=== PATIENT | female | born 1990 | race Caucasian/White ===

== ENCOUNTER 2019-04-30 03:06 | Inpatient (IN) | payer OTHER ==
[2019-04-30] MEDS ORDERED: TYLENOL EXTRA STRENGTH 500 MG PO PRN ×2 (03:26→08:15)
[2019-04-30] MEDS ORDERED: OMNIPEN 2 GM / NACL 100ML 100 ML IV ONE (03:26)
[2019-04-30] MEDS ORDERED: XYLOCAINE 1% HCL 20 ML MDV IJ PRN (03:26)
[2019-04-30] MEDS ORDERED: Zofran 4 MG/2 ML VIAL IV PRN (03:26)
[2019-04-30] MEDS ORDERED: PITOCIN 30 UNITS/ LR 500 ML 500 ML IV SCH ×2 (03:30→05:00)
[2019-04-30] MEDS: Lactated Ringers 1,000 ML IV SCH ×2 (03:36→04:13)
[2019-04-30] MEDS ORDERED: XYLOCAINE 2%/Epi 1:200000 20ML VIAL MPF IJ ONE ×2 (04:05→04:55)
[2019-04-30 04:11] LABS: Absolute Neutrophil Ct (ANC) 11.06 (1.4-6.9); BASOPHIL % 0.1 % (0.0-0.4); Basophil (Absolute #) 0.01 (0-0.4); Eosinophil % 0.2 % (0.00-5.0); Eosinophil (Absolute #) 0.03 (0-0.5); Lymphocyte (Absolute #) 1.34 (1.0-4.6); Lymphocytes % 9.9 % (24.0-44.0); Mean Cell Volume 93.2 fl (78-100); Mean Corpuscular Hgb Concent. 33.3 g/dl (32-36); Mean Platelet Volume 10.5 fl (6-9.5); Monocyte (Absolute #) 1.11 (0.0-1.3); Monocytes % 8.2 % (0.0-12.0); Neutrophil % 81.6 % (36.0-66.0); Platelet Count 329 K/mm3 (150-450); Red Blood Count 3.54 M/mm3 (4.1-5.4); Red Cell Distribution Width 14.7 % (11.5-14.0); White Blood Count 13.6 K/mm3 (4.0-10.5)
[2019-04-30] MEDS ORDERED: Ephedrine Sulfate 50 MG/ML IV PRN (04:25)
[2019-04-30] MEDS ORDERED: OB EPIDURAL NAROPIN/SUFENTANIL IN NACL EPIDURAL PRN (04:25)
[2019-04-30] MEDS ORDERED: Lactated Ringers 1,000 ML IV ONE (04:25)
[2019-04-30] MEDS ORDERED: OMNIPEN 1GM / NaCl 100ML 100 ML IV SCH (07:30)
[2019-04-30] MEDS ORDERED: LANSINOH 40 GM TOP PRN (08:15)
[2019-04-30] MEDS ORDERED: Mylicon 80MG PO PRN (08:15)
[2019-04-30] MEDS ORDERED: Dulcolax 10 MG SUPP PR PRN (08:15)
[2019-04-30] MEDS ORDERED: NORCO 5/325 MG PO PRN (08:15)
[2019-04-30] MEDS ORDERED: CORTISONE 1% CREAM TP PRN (08:15)
[2019-04-30] MEDS ORDERED: Dermoplast Spray TP PRN (08:15)
[2019-04-30] MEDS ORDERED: Anucort-HC SUPPOSITORY PR PRN (08:15)
[2019-04-30] MEDS ORDERED: TUCKS TP PRN (08:15)
[2019-04-30] MEDS ORDERED: Ambien 10 MG PO PRN (08:15)
[2019-04-30 09:41] LABS: Amphetamine,Urine NEGATIVE (NEGATIVE); Barbiturate,Urine NEGATIVE (NEGATIVE); Benzodiazepine,Urine NEGATIVE (NEGATIVE); Cocaine,Urine NEGATIVE (NEGATIVE); Methadone,Urine NEGATIVE (NEGATIVE); Opiate,Urine NEGATIVE (NEGATIVE); PCP,Urine NEGATIVE (NEGATIVE); THC,Urine NEGATIVE (NEGATIVE)
[2019-04-30] MEDS: FERREX 150 PO SCH (10:16)
[2019-04-30] MEDS: Colace 100 MG PO SCH ×2 (10:16→21:58)
[2019-04-30] MEDS ORDERED: M-M-R II Vaccine With Diluent SQ ONE (12:00)
[2019-04-30] MEDS: MOTRIN 400 MG PO PRN (18:11)
[2019-04-30 20:16] LABS: Absolute Neutrophil Ct (ANC) 15.79 (1.4-6.9); BASOPHIL % 0.1 % (0.0-0.4); Basophil (Absolute #) 0.02 (0-0.4); Eosinophil % 0.1 % (0.00-5.0); Eosinophil (Absolute #) 0.01 (0-0.5); Hematocrit 31.3 % (35-47); Hemoglobin 10.2 gm/dl (12.0-16.0); Lymphocyte (Absolute #) 1.04 (1.0-4.6); Lymphocytes % 5.8 % (24.0-44.0); Mean Cell Volume 93.2 fl (78-100); Mean Corpuscular Hgb Concent. 32.6 g/dl (32-36); Mean Platelet Volume 10.1 fl (6-9.5); Monocyte (Absolute #) 1.19 (0.0-1.3); Monocytes % 6.6 % (0.0-12.0); Neutrophil % 87.4 % (36.0-66.0); Platelet Count 268 K/mm3 (150-450); Red Blood Count 3.36 M/mm3 (4.1-5.4); Red Cell Distribution Width 14.8 % (11.5-14.0); White Blood Count 18.1 K/mm3 (4.0-10.5)
[2019-04-30 20:19] LABS: Mean Corpuscular Hemoglobin 30.3 pg (26-32)
[2019-04-30] MEDS: Adacel Vial IM ONE (21:59)
[2019-05-01] MEDS: MOTRIN 400 MG PO PRN ×2 (06:41→19:46)
[2019-05-01] MEDS: Colace 100 MG PO SCH ×2 (09:13→22:42)
[2019-05-01] MEDS: FERREX 150 PO SCH (09:13)
[2019-05-02] MEDS: MOTRIN 400 MG PO PRN (01:52)
[2019-05-02 02:10] VITALS: O2SAT 99
--- NOTE | 2019-05-02 08:11 | PCM.DS ---
Discharge Summary Date of Admission: 04/30/19 03:06 Admitting Physician: CINDY TURNER Consults: Consults on Case 04/30/19 04:26 Notify Anesthesia Provider PRN 04/30/19 08:15 Notify Physician ROUTINE Primary Care Provider: FINA MONTELONGO Allergies Allergies No Known Drug Allergies Allergy (Verified 04/30/19 04:52) Hospital Summary - Hospital Course Hospital Course: Pt came in as 29 yo at 38w 6d in spontaneous labor (SROM at home). She is a pt of Dr. Amin but lives in [place],so did not think she would make it to [place] to deliver. She was 3cm/100% at that time. She received her epidural. In the morning she was found to be 100% dilated and she delivered about 25min after I arrived. No complications. Very little bleeding. She was treated with a loading dose of ampicillin due to her (at that time) unknown Group B strep status. We got her prenatals later in the day. She was indeed GBS positive. 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 Otherwise no issues during this . She has recovered well, taking ibuprofen for pain. Her bleeding is slowing. - Vitals & Intake/Output Vital Signs: Vital Signs Temperature 98.1 F 05/02/19 02:00 Pulse Rate 68 05/02/19 02:00 Respiratory Rate 18 05/02/19 02:00 Blood Pressure 102/60 05/02/19 02:00 O2 Sat by Pulse Oximetry 99 05/02/19 02:00 Oxygen-Last Documented O2 Percentage 100% Intake & Output: Intake & Output 04/29/19 04/30/19 05/01/19 05/02/19 11:59 11:59 11:59 11:59 Intake Total 6885 294 3586 Balance 7718 087 5014 Weight 57.153 kg - Lab Result Diagrams: 04/30/19 20:14 - Procedures and Test Procedures and Tests throughout Hospitalization: Therapy Orders & Screens 04/30/19 09:09 Standby Routine Comment: Diagnosis: SROM, labor Discharge Exam General Appearance: no apparent distress, alert Neurologic Exam: oriented x 3, cooperative Eye Exam: eyes nml inspection Ears, Nose, Throat Exam: moist mucous membranes Neck Exam: normal inspection Respiratory Exam: normal breath sounds, lungs clear, No crackles/rales, No rhonchi, No wheezing Cardiovascular Exam: regular rate/rhythm, normal heart sounds, No murmur Gastrointestinal/Abdomen Exam: soft, normal bowel sounds, other (fundus firm under umbilicus), No tenderness, No distention, No mass Extremity Exam: normal inspection Skin Exam: normal color, warm, dry, No rash Final Diagnosis/Problem List - Final Discharge Diagnosis/Problem (1) Spontaneous vaginal delivery Current Visit: Yes Status: Acute Assessment & Plan: PPD #2, doing great. Code(s): O80 - ENCOUNTER FOR FULL-TERM UNCOMPLICATED DELIVERY (2) Anemia Current Visit: Yes Status: Acute Assessment & Plan: Mild. Home on FeSO4 for 1 mo. Code(s): D64.9 - ANEMIA, UNSPECIFIED - Discharge Disposition: Home, Self-Care Condition: Good Prescriptions: New Docusate Sodium 100 mg [Colace 100 MG] 100 mg PO BID capsule Ferrous Sulfate 325 mg [Feosol 325 mg] 325 mg PO DAILY #30 tablet Ibuprofen 800 mg PO TID PRN #35 tablet PRN Reason: Pain Continue Pnv No.103/Folic/Om3s/Fish Oil [ Gummies] 1 each PO DAILY Follow up with: FINA MONTELONGO [Primary Care Provider] - 1 Week
[2019-05-02] MEDS: FERREX 150 PO SCH (10:22)
[2019-05-02] MEDS: Colace 100 MG PO SCH (10:22)
[2019-05-02 15:23] VITALS: BP 128/77; PULSE 92
== END 2019-05-02 16:50 | disposition home or self-care (01) | DRG 807 ==
LOC: OBSVTOIN 03:06 → EEVIPCON 03:06 → OB 03:06
PROVIDERS: ADMIT Family Medicine; ATTEND Family Medicine
PROC: 10E0XZZ Delivery of Products of Conception, External Approach (ICD-10-PCS; principal; 2019-04-30)
DX: O70.0 First degree perineal laceration during delivery (principal); Z37.0 Single live birth; O99.824 Streptococcus B carrier state complicating childbirth; D64.9 Anemia, unspecified; Z3A.38 38 weeks gestation of pregnancy; Z14.8 Genetic carrier of other disease
CPT/HCPCS: 36415; 80307; 85025; 87340; 90471; 90715; 94799; G0378; J0290; J2590; J2795; A9270-GY

== ENCOUNTER 2023-02-01 20:14 | Emergency (ER) | payer SELFPAY ==
[2023-02-01 21:43] VITALS: TEMP 97.8
[2023-02-01] MEDS ORDERED: BACTRIM DS TABLET PO STA (21:44)
[2023-02-01] MEDS ORDERED: BACTRIM DS TABLET PO ONE (21:49)
--- NOTE | 2023-02-01 21:50 | ERPHSYRPT ---
- History of Present Illness Time Seen by Provider: 02/01/23 21:29 Source: patient Exam Limitations: no limitations Patient Subjective Stated Complaint: pt states she has these pimples and they are so painful Triage Nursing Assessment: pt ambulated into er; pt is axo x4; c/o pustule to the face; pt has 3 pustules to face; pt states pain to pustule to rt cheek; pt states pain is radiating to ear; other pustules are on the rt side of face; skin PDW; no respiratory distress present; vitals wnl Physician History: is 32-year-old female presented in the ER with rash/swelling on the face. She has 2 on the left and 1 on the right side. It started 2 days ago and gradually worsening especially the one on the right side of the angle of jaw with pain radiating to right ear. No fever or chills reported. Timing/Duration: day(s) (2), gradual onset, worse Quality: painful Severity: moderate Location: face Possible Causes: no cause identified Associated Symptoms: rash Allergies/Adverse Reactions: No Known Drug Allergies Allergy (Verified 02/01/23 21:29) Hx Tetanus, Diphtheria Vaccination/Date Given: No Hx Influenza Vaccination/Date Given: No Hx Pneumococcal Vaccination/Date Given: No Travel Risk - International Travel Have you traveled outside of the country in past 3 weeks: No - Coronavirus Screening Are you exhibiting any of the following symptoms?: No Close contact with a COVID-19 positive Pt in past 14-21 Days: No - Vaccine Status Have you recieved a Covid-19 vaccination: No - Review of Systems Constitutional: No Symptoms Eyes: No Symptoms Ears, Nose, & Throat: No Symptoms Respiratory: No Symptoms Cardiac: No Symptoms Musculoskeletal: No Symptoms Skin: Rash, Skin Lesions Neurological: No Symptoms Endocrine: No Symptoms Hematologic/Lymphatic: No Symptoms (Chief) - Past Medical History Pertinent Past Medical History: Yes Neurological History: No Pertinent History ENT History: No Pertinent History Cardiac History: No Pertinent History Respiratory History: No Pertinent History Endocrine Medical History: No Pertinent History Musculoskeletal History: No Pertinent History GI Medical History: No Pertinent History History: Other Psycho-Social History: No Pertinent History Female Reproductive Disorders: No Pertinent History Other Medical History: polycystic kidney disease - Past Surgical History Past Surgical History: Yes Neuro Surgical History: No Pertinent History Cardiac: No Pertinent History Respiratory: No Pertinent History Gastrointestinal: No Pertinent History Genitourinary: No Pertinent History Musculoskeletal: No Pertinent History Female Surgical History: Tubal Ligation, Other Other Surgical History: cervix sugery- LEAP PROCEDURE - Social History Smoking Status: Never smoker How long have you smoked: 3 years Exposure to second hand smoke: Yes Drug Use: none Patient Lives Alone: No - Female History Hx Now: No - Nursing Vital Signs Nursing Vital Signs: Initial Vital Signs Temperature 97.8 F 02/01/23 21:30 Pulse Rate 79 02/01/23 21:30 Respiratory Rate 18 02/01/23 21:30 Blood Pressure 117/77 02/01/23 21:30 O2 Sat by Pulse Oximetry 100 02/01/23 21:30 Pain Scale Pain Intensity 7 - Physical Exam General Appearance: no apparent distress, alert Eye Exam: PERRL/EOMI Ears, Nose, Throat Exam: normal ENT inspection Neck Exam: normal inspection, supple, full range of motion Respiratory Exam: normal breath sounds, lungs clear Cardiovascular Exam: regular rate/rhythm, normal heart sounds Extremity Exam: normal inspection Neurologic Exam: alert, oriented x 3, cooperative, 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 Also has 1 x 1 cm area of induration with swelling at the angle of right jaw.) SpO2 Interpretation: normal SpO2: 100 O2 Delivery: Room Air Ordered Tests: Medication Summary Generic Name Dose Route Start Last Admin Trade Name Freq PRN Reason Stop Dose Admin Trimethoprim/Sulfamethoxazole 1 tab 02/01/23 21:44 Smz/Tmp Ds Tablet 1 Tablet PO 02/01/23 21:45 STAT STA - Progress Progress: unchanged Progress Note: 02/01/23 21:48 32-year-old is evaluated for rash on the both side of the face especially due to the right angle of jaw which is warm tender and a central head. Patient is started on Bactrim. Recommended Tylenol/ibuprofen and outpatient follow-up. Discussed signs symptoms of worsening needing return to ER which she seems understanding. Counseled pt/family regarding: diagnosis, need for follow-up Medical Desision Making - Risk of complications The pt has a mod risk of morbidity or mortality based on: Need for prescription drug management - Departure Departure Disposition: Home Clinical Impression: Cutaneous abscess of face Condition: Stable Critical Care Time: No Referrals: CINDY BRITTON [Primary Care Provider] - Follow up with PCP 1 day Instructions: Skin Abscess Additional Instructions: Take Tylenol/ibuprofen as needed for pain. Follow-up with primary care for reevaluation. Return to ER for increasing pain swelling redness/fever chills etc. Prescriptions: Smz/Tmp Ds Tablet [Bactrim Ds Tablet] 1 tab PO BID 7 Days #14 tablet
[2023-02-01 22:02] VITALS: BP 122/91; PULSE 71; RESP 15; O2SAT 98
== END 2023-02-01 22:04 | disposition home or self-care (01) ==
LOC: ED 20:14
DX: L02.01 Cutaneous abscess of face (principal); Z28.310 Unvaccinated for COVID-19
CPT/HCPCS: 99282; A9270-GY

== ENCOUNTER 2023-07-06 17:50 | Emergency (ER) | payer OTHER ==
[2023-07-06 18:08] VITALS: TEMP 97.9
[2023-07-06] MEDS ORDERED: Zofran 4 MG/2 ML VIAL IV ONE (18:14)
[2023-07-06] MEDS ORDERED: Hydromorphone 1 mg/ml Injection IV ONE (18:14)
[2023-07-06] MEDS ORDERED: PROTONIX 40 MG IV IV ONE ×2 (18:14→18:28)
[2023-07-06] MEDS ORDERED: Sodium Chloride 0.9% 1000 ML 1,000 ML IV STA (18:14)
[2023-07-06] MEDS ORDERED: Zofran 4 MG/2 ML VIAL ONE (18:28)
[2023-07-06] MEDS ORDERED: Sodium Chloride 0.9% 1000 ML 1,000 ML ONE (18:28)
[2023-07-06] MEDS ORDERED: Hydromorphone 1 mg/ml Injection ONE (18:28)
[2023-07-06 18:49] LABS: Absolute Neutrophil Ct (ANC) 12.51 x10^3/uL (1.4-6.9); BASOPHIL % 0.3 % (0.0-0.4); Basophil (Absolute #) 0.04 x10^3/uL (0-0.4); Eosinophil % 0.1 % (0.00-5.0); Eosinophil (Absolute #) 0.01 x10^3/uL (0-0.5); Hematocrit 35.8 % (35-47); Hemoglobin 11.6 g/dL (12.0-16.0); IMMATURE GRAN # 0.06 x10^3u/L (0.00-0.03); IMMATURE GRAN % 0.4 % (0.00-0.4); Lymphocyte (Absolute #) 0.85 x10^3/uL (1.0-4.6); Lymphocytes % 5.8 % (24.0-44.0); Mean Cell Volume 95.5 fL (78-100); Mean Corpuscular Hemoglobin 30.9 pg (26-32); Mean Corpuscular Hgb Concent. 32.4 g/dL (32-36); Mean Platelet Volume 9.6 fL (7.5-11.0); Monocyte (Absolute #) 1.12 x10^3/uL (0.0-1.3); Monocytes % 7.7 % (0.0-12.0); Neutrophil % 85.7 % (36.0-66.0); Platelet Count 495 x10^3/uL (150-450); Red Blood Count 3.75 x10^6/uL (4.1-5.4); Red Cell Distribution Width 13.9 % (11.5-14.0); White Blood Count 14.6 x10^3/uL (4.0-10.5)
[2023-07-06 19:03] LABS: ALBUMIN 4.3 g/dL (3.5-5.0); BILIRUBIN,TOTAL 1.1 mg/dL (0.2-1.3); Creatinine 1 0.59 mg/dL (0.52-1.04); EST GLOMERULAR FILTRATION RATE 122.7 ML/MIN; Total Protein 8.5 g/dL (6.3-8.2)
[2023-07-06 19:15] LABS: ANION GAP 13.2 MEQ/L (5-15); Potassium 3.2 mmol/L (3.5-5.1)
[2023-07-06 19:24] LABS: INFLUENZA A NEGATIVE (NEGATIVE); INFLUENZA B NEGATIVE (NEGATIVE); RESPIRATORY SYNCTIAL VIRUS NEGATIVE (NEGATIVE); SARS-CoV-2 Xpert Express NEGATIVE (NEGATIVE)
--- NOTE | 2023-07-06 19:24 | ERPHSYRPT ---
- History of Present Illness Time Seen by Provider: 07/06/23 18:05 Historian: patient, family ( provided additional, independent history secondary to the patient feeling very ill), old records Exam Limitations: no limitations Patient Subjective Stated Complaint: Pt went to [facility] yesterday and they told her that she had a UTI only, pt has vomiting and diarrhea, body aches, headache, can't stand up straight, left sided flank pain and was not tested for anything else Triage Nursing Assessment: Pt was brought to the ER by her boyfriend, vitalbarry wnl, rates overall pain as 8/10, can't hold anything down, N&V, diarrhea, headache, left flank pain, hasn't felt well since 06/28 but just started vomiting yesterday, pulses normal, skin n/w/d, no difficulties breathing Physician History: This is a 33-year-old white female patient of Dr. Feliciano Zafar who presents to the emergency department with vomiting and diarrhea as well as pain in the left flank pain. Patient states that she started not feeling well on June 28, 2023. Because of her worsening symptoms she was seen at [facility] yesterday and was told she had a urinary tract infection. She was started on an antibiotic. She does not recall the name of the antibiotic. Her does not recall the name of the antibiotic. However, per patient report, the [facility] did not test for anything else. Patient has bodyaches, headache, abdominal pain and cannot stand up straight because of the pain in her abdomen and left flank area. Symptoms are even worse today. Patient denies chest pain. She does not have shortness of breath. Timing/Duration: day(s) (Several days), worse (Yesterday and even worsening today) Activities at Onset: none Quality: aching Abdominal Pain Onset Location: generalized abdomen Pain Radiation: flank (Left) Severity of Pain-Max: moderate Severity of Pain-Current: moderate Modifying Factors: Improves With: vomiting, other (Diarrhea) Associated Symptoms: diarrhea, loss of appetite, nausea, vomiting, weakness Previous symptoms: no prior history, recently seen, recently treated Allergies/Adverse Reactions: No Known Drug Allergies Allergy (Verified 07/06/23 18:10) Hx Tetanus, Diphtheria Vaccination/Date Given: No Hx Influenza Vaccination/Date Given: No Hx Pneumococcal Vaccination/Date Given: No Travel Risk - International Travel Have you traveled outside of the country in past 3 weeks: No - Coronavirus Screening Are you exhibiting any of the following symptoms?: Yes Symptoms: Vomiting/Diarrhea, Headaches/Body Aches/Fatigue Close contact with a COVID-19 positive Pt in past 14-21 Days: No - Vaccine Status Have you recieved a Covid-19 vaccination: No - Review of Systems Constitutional: Weakness Eyes: No Symptoms Ears, Nose, & Throat: No Symptoms Respiratory: No Symptoms Cardiac: No Symptoms, Other Abdominal/Gastrointestinal: Nausea, Vomiting, Diarrhea, Appetite Changes Genitourinary Symptoms: Flank Pain (Left side) Musculoskeletal: Arthralgias, Myalgias Skin: No Symptoms Neurological: No Symptoms Psychological: No Symptoms Endocrine: No Symptoms Hematologic/Lymphatic: No Symptoms Immunological/Allergic: No Symptoms All Other Systems: Reviewed and Negative - Past Medical History Pertinent Past Medical History: Yes Neurological History: No Pertinent History ENT History: No Pertinent History Cardiac History: No Pertinent History Respiratory History: No Pertinent History Endocrine Medical History: No Pertinent History Musculoskeletal History: No Pertinent History GI Medical History: No Pertinent History History: Other Psycho-Social History: No Pertinent History Female Reproductive Disorders: No Pertinent History Other Medical History: polycystic kidney disease - Past Surgical History Past Surgical History: Yes Neuro Surgical History: No Pertinent History Cardiac: No Pertinent History Respiratory: No Pertinent History Gastrointestinal: No Pertinent History Genitourinary: No Pertinent History Musculoskeletal: No Pertinent History Female Surgical History: Tubal Ligation, Other Other Surgical History: cervix sugery- LEAP PROCEDURE - Social History Smoking Status: Never smoker How long have you smoked: 3 years Exposure to second hand smoke: Yes Drug Use: none Patient Lives Alone: No - Female History Hx Now: No (tubal) - Nursing Vital Signs Nursing Vital Signs: Initial Vital Signs Temperature 97.9 F 07/06/23 17:55 Pulse Rate 98 H 07/06/23 17:55 Blood Pressure 117/70 07/06/23 17:55 O2 Sat by Pulse Oximetry 99 07/06/23 17:55 Pain Scale Pain Intensity 8 - Physical Exam General Appearance: no apparent distress, alert, anxiety Eye Exam: PERRL/EOMI, eyes nml inspection Ears, Nose, Throat Exam: normal ENT inspection, moist mucous membranes Neck Exam: normal inspection, non-tender, supple, full range of motion Respiratory Exam: normal breath sounds, lungs clear, airway intact, No chest tenderness, No respiratory distress Cardiovascular Exam: regular rate/rhythm, normal heart sounds, normal peripheral pulses Gastrointestinal/Abdomen Exam: soft, normal bowel sounds, No tenderness Pelvic Exam: not done Rectal Exam: not done Back Exam: normal inspection, normal range of motion, CVA tenderness (Left side), No vertebral tenderness Extremity Exam: normal inspection, normal range of motion, pelvis stable Neurologic Exam: alert, oriented x 3, cooperative, wildlife manager II-XII nml as tested, normal mood/affect, nml cerebellar function, nml station & gait, sensation nml Skin Exam: normal color, warm, dry Lymphatic Exam: No adenopathy SpO2 Interpretation: normal SpO2: 99 O2 Delivery: Room Air - Course Nursing assessment & vital signs reviewed: Yes Ordered Tests: Active Orders 24 hr Category Date Time Status IV Insertion STAT Care 07/06/23 18:14 Active ABDOMEN AND PELVIS W/0 CONTRAS [CT] Stat Exams 07/06/23 18:15 Completed AMYLASE Stat Lab 07/06/23 18:36 Completed BLOOD CULTURE Stat Lab 07/06/23 18:43 Received CBC W DIFF Stat Lab 07/06/23 18:36 Completed CMP Stat Lab 07/06/23 18:36 Completed CULTURE,URINE Stat Lab 07/06/23 20:19 Received LIPASE Stat Lab 07/06/23 18:36 Completed Lactic Acid Stat Lab 07/06/23 18:14 Completed MONO SCREEN Stat Lab 07/06/23 18:36 Completed UA W/RFX UR CULTURE Stat Lab 07/06/23 20:19 Completed Medication Summary Discontinued Medications Generic Name Dose Route Start Last Admin Trade Name Chaim PRN Reason Stop Dose Admin Hydromorphone HCl 1 mg 07/06/23 18:14 07/06/23 18:35 Hydromorphone 1 Mg/1ml Inj IV 07/06/23 18:15 1 mg STAT ONE Administration Hydromorphone HCl Confirm 07/06/23 18:28 Hydromorphone 1 Mg/1ml Inj Administered 07/06/23 18:29 Dose 1 mg .ROUTE .STK-MED ONE Sodium Chloride 1,000 mls @ 999 mls/hr 07/06/23 18:14 07/06/23 18:34 Sodium Chloride 0.9% 1000 Ml IV 07/06/23 19:14 999 mls/hr .Q1H1M STA Administration Sodium Chloride Confirm 07/06/23 18:28 Sodium Chloride 0.9% 1000 Ml Administered 07/06/23 18:29 Dose 1,000 mls @ ud .ROUTE .STK-MED ONE Lactated Ringer's 1,000 mls @ 999 mls/hr 07/06/23 20:08 07/06/23 20:18 Lactated Ringers IV 07/06/23 21:08 999 mls/hr .Q1H1M ONE Administration Lactated Ringer's Confirm 07/06/23 20:13 Lactated Ringers Administered 07/06/23 20:14 Dose 1,000 mls @ ud IV .STK-MED ONE Ondansetron HCl 4 mg 07/06/23 18:14 07/06/23 18:35 Ondansetron Hcl 4 Mg/2 Ml Vial IV 07/06/23 18:15 4 mg STAT ONE Administration Ondansetron HCl Confirm 07/06/23 18:28 Ondansetron Hcl 4 Mg/2 Ml Vial Administered 07/06/23 18:29 Dose 4 mg .ROUTE .STK-MED ONE Pantoprazole Sodium 40 mg 07/06/23 18:14 07/06/23 18:35 Pantoprazole 40 Mg Vial IV 07/06/23 18:15 40 mg STAT ONE Administration Pantoprazole Sodium Confirm 07/06/23 18:28 Pantoprazole 40 Mg Vial Administered 07/06/23 18:29 Dose 40 mg IV .STK-MED ONE Potassium Chloride 20 meq 07/06/23 20:09 07/06/23 21:06 Potassium Chloride Tab 10 Meq Tab PO 07/06/23 20:10 20 meq STAT ONE Administration Potassium Chloride Confirm 07/06/23 20:13 Potassium Chloride Tab 10 Meq Tab Administered 07/06/23 20:14 Dose 20 meq PO .STK-MED ONE Lab/Rad Data: Laboratory Result Diagrams 07/06/23 18:36 07/06/23 18:36 Laboratory Results 07/06/23 07/06/23 07/06/23 Range/Units 20:19 18:36 18:36 WBC (4.0-10.5) x10^3/uL RBC (4.1-5.4) x10^6/uL Hgb (12.0-16.0) g/dL Hct (35-47) % MCV (78-100) fL MCH (26-32) pg MCHC (32-36) g/dL RDW (11.5-14.0) % Plt Count (150-450) x10^3/uL MPV (7.5-11.0) fL Gran % (36.0-66.0) % Immature Gran % (Auto) (0.00-0.4) % Nucleat RBC Rel Count (0.00-0.1) % Eos # (Auto) (0-0.5) x10^3/uL Immature Gran # (Auto) (0.00-0.03) x10^3u/L Absolute Lymphs (auto) (1.0-4.6) x10^3/uL Absolute Monos (auto) (0.0-1.3) x10^3/uL Absolute Nucleated RBC (0.00-0.01) x10^3u/L Lymphocytes % (24.0-44.0) % Monocytes % (0.0-12.0) % Eosinophils % (0.00-5.0) % Basophils % (0.0-0.4) % Absolute Granulocytes (1.4-6.9) x10^3/uL Basophils # (0-0.4) x10^3/uL Sodium 137 (137-145) mmol/L Potassium 3.2 L (3.5-5.1) mmol/L Chloride 100 (98-107) mmol/L Carbon Dioxide 27 (22-30) mmol/L Anion Gap 13.2 (5-15) MEQ/L BUN 10 (7-17) mg/dL Creatinine 0.59 (0.52-1.04) mg/dL Estimated GFR 122.7 ML/MIN Glucose 104 (74-106) mg/dL Lactic Acid (0.4-2.0) Calcium 10.0 (8.4-10.2) mg/dL Total Bilirubin 1.10 (0.2-1.3) mg/dL AST 38 H (14-36) U/L ALT 50 H (0-35) U/L Alkaline Phosphatase 234 H (38-126) U/L Serum Total Protein 8.5 H (6.3-8.2) g/dL Albumin 4.3 (3.5-5.0) g/dL Amylase 46 (30-110) U/L Lipase 29 (23-300) U/L Urine Color Dark Yellow A (Yellow) Urine Appearance Cloudy A (Clear) Urine pH 7.5 (4.6-8.0) Ur Specific [place] 1.020 (1.005-1.030) Urine Protein 100 A (Negative) Urine Glucose (UA) Negative (Negative) mg/dL Urine Ketones 80 A (Negative) Urine Blood Moderate A (Negative) Urine Nitrite Negative (Negative) Urine Bilirubin Small A (Negative) Urine Urobilinogen 1.0 A (0.2) mg/dL Ur Leukocyte Esterase Small A (Negative) U Hyaline Cast (Auto) 3-5 A (0-2) /LPF Urine Microscopic RBC >100 A (0-5) /HPF Urine Microscopic WBC 21-50 A (0-5) /HPF Ur Epithelial Cells Few (None Seen) /HPF Urine Bacteria Few A (None Seen) /HPF Urine Culture Reflexed YES (NO) Monoscreen WEAKLY POSITIVE A (NEGATIVE) Influenza Type A Ag (NEGATIVE) Influenza Type B Ag (NEGATIVE) RSV (PCR) (NEGATIVE) SARS-CoV-2 (PCR) (NEGATIVE) 07/06/23 07/06/23 07/06/23 Range/Units 18:36 18:18 18:14 WBC 14.6 H (4.0-10.5) x10^3/uL RBC 3.75 L (4.1-5.4) x10^6/uL Hgb 11.6 L (12.0-16.0) g/dL Hct 35.8 (35-47) % MCV 95.5 (78-100) fL MCH 30.9 (26-32) pg MCHC 32.4 (32-36) g/dL RDW 13.9 (11.5-14.0) % Plt Count 495 H (150-450) x10^3/uL MPV 9.6 (7.5-11.0) fL Gran % 85.7 H (36.0-66.0) % Immature Gran % (Auto) 0.4 (0.00-0.4) % Nucleat RBC Rel Count 0.0 (0.00-0.1) % Eos # (Auto) 0.01 (0-0.5) x10^3/uL Immature Gran # (Auto) 0.06 H (0.00-0.03) x10^3u/L Absolute Lymphs (auto) 0.85 L (1.0-4.6) x10^3/uL Absolute Monos (auto) 1.12 (0.0-1.3) x10^3/uL Absolute Nucleated RBC 0.00 (0.00-0.01) x10^3u/L Lymphocytes % 5.8 L (24.0-44.0) % Monocytes % 7.7 (0.0-12.0) % Eosinophils % 0.1 (0.00-5.0) % Basophils % 0.3 (0.0-0.4) % Absolute Granulocytes 12.51 H (1.4-6.9) x10^3/uL Basophils # 0.04 (0-0.4) x10^3/uL Sodium (137-145) mmol/L Potassium (3.5-5.1) mmol/L Chloride (98-107) mmol/L Carbon Dioxide (22-30) mmol/L Anion Gap (5-15) MEQ/L BUN (7-17) mg/dL Creatinine (0.52-1.04) mg/dL Estimated GFR ML/MIN Glucose (74-106) mg/dL Lactic Acid 1.1 (0.4-2.0) Calcium (8.4-10.2) mg/dL Total Bilirubin (0.2-1.3) mg/dL AST (14-36) U/L ALT (0-35) U/L Alkaline Phosphatase (38-126) U/L Serum Total Protein (6.3-8.2) g/dL Albumin (3.5-5.0) g/dL Amylase (30-110) U/L Lipase (23-300) U/L Urine Color (Yellow) Urine Appearance (Clear) Urine pH (4.6-8.0) Ur Specific [place] (1.005-1.030) Urine Protein (Negative) Urine Glucose (UA) (Negative) mg/dL Urine Ketones (Negative) Urine Blood (Negative) Urine Nitrite (Negative) Urine Bilirubin (Negative) Urine Urobilinogen (0.2) mg/dL Ur Leukocyte Esterase (Negative) U Hyaline Cast (Auto) (0-2) /LPF Urine Microscopic RBC (0-5) /HPF Urine Microscopic WBC (0-5) /HPF Ur Epithelial Cells (None Seen) /HPF Urine Bacteria (None Seen) /HPF Urine Culture Reflexed (NO) Monoscreen (NEGATIVE) Influenza Type A Ag NEGATIVE (NEGATIVE) Influenza Type B Ag NEGATIVE (NEGATIVE) RSV (PCR) NEGATIVE (NEGATIVE) SARS-CoV-2 (PCR) NEGATIVE (NEGATIVE) - Progress Progress: improved, re-examined Progress Note: 07/06/23 19:23 This patient's medical issue is 1 of moderate complexity. Level of complexity in the workup performed is based on review of the patient's past medical history, review of patient's medication list, review of patient drug allergy list, history of present illness and physical findings on examination. The workup includes placement of intravenous line, infusion of normal saline s olution, infusion of Protonix intravenously, infusion of Dilaudid intravenously, infusion of Zofran intravenously, CBC, CMP, lactic acid level, urinalysis, amylase and lipase levels, viral swabs, monotest, CT scan of the abdomen pelvis. I did not order test because the patient states she is not and she has had a bilateral tubal ligation. 07/06/23 20:26 CT scan of the abdomen pelvis without contrast was interpreted by the radiologist. I reviewed the impression. Impression states bilateral mildly enlarged kidneys with multiple cysts. (Patient has a history of polycystic ki dney disease) there is bilateral intrarenal calyceal calculi. Questionable tiny benign hepatic cyst. Appendix is unremarkable. 07/06/23 20:27 We are awaiting the results of the urinalysis. However, I did interpret the laboratory data results that have returned. Patient has mild hypokalemia. She has mildly elevated liver function tests. She does have positive mono test. 07/06/23 21:31 I interpreted the patient's urinalysis. Patient does have persistent urinary tract infection. She is to continue the antibiotics that were started yesterday. Patient is on her second liter of fluid replacement. Patient does have evidence of moderate dehydration. Counseled pt/family regarding: lab results, diagnosis, need for follow-up, rad results Medical Desision Making - Independent Historian Additional History obtained from: Spouse - Diagnostic Testing Diagnostic test were ordered, analyzed, and reviewed by me: Yes Radiological Interpretation: Reviewed by me, Teleradiologist Report - Risk of complications The pt has a mod risk of morbidity or mortality based on: Need for prescription drug management - Departure Departure Disposition: Home Clinical Impression: Vomiting and diarrhea, Mononucleosis, Elevated LFTs, UTI (urinary tract infection), Dehydration Condition: Stable Critical Care Time: No Referrals: CINDY BRITTON [Primary Care Provider] - Follow up/PCP as directed Additional Instructions: Drink plenty of fluids. Take your antibiotics as prescribed. Do not advance your diet until you are drinking clear liquids well. Prescriptions: Ondansetron ODT 4 MG [Zofran Odt 4 mg] 4 mg PO Q6H PRN PRN #10 tablet PRN Reason: Vomiting
[2023-07-06] MEDS ORDERED: Lactated Ringers 1,000 ML IV ONE ×2 (20:08→20:13)
[2023-07-06] MEDS ORDERED: Klor Con PO ONE ×2 (20:09→20:13)
--- NOTE | 2023-07-06 20:15 | XRAY ---
CLINICAL HISTORY:ABD pain; N/V/D COMPARISON:None TECHNIQUE:CT scan of the abdomen and pelvis was performed without IV contrast.Coronal and sagittal reconstructive images were also obtained. FINDINGS: Sections of lower thorax show no significant abnormality. Abdomen: The liver is of average size. Tiny 3-4mm hypodense lesions noted in liver, possibly representing benign hepatic cysts. The intrahepatic biliary radicals and the bile ducts are normal. The gallbladder is distended. There is no evidence of wall thickening/ pericholecystic collection. The spleen, pancreas, adrenal glands are unremarkable. The kidneys are relatively enlarged in size, right kidney measures 11.4 x 5.5 cm and left kidney measures 12.1 x 5.9 cm in coronal plane. Multiple cysts of varying densities are noted in both kidneys, suggesting simple and mucoid/ hemorrhagic cysts, within the limitations of plain study. A 6.5 mm calculus is seen in inferior calyx of left kidney with a 1.5 mm calculus in the inferior calyx of right kidney. No hydronephrosis. The ascending colon, the transverse colon, the descending colon, visualized small bowel loops are unremarkable. Appendix appears unremarkable. There is no evidence of significant enlargement of the mesenteric or retroperitoneal lymph nodes. Pelvis: The urinary bladder is unremarkable. The rectosigmoid colon is unremarkable. The uterus and adnexa appears unremarkable. No evidence of pelvic lymphadenopathy. Mild dextroscoliosis of thoracolumbar spine noted. No other definite bony abnormalities could be depicted. IMPRESSION: 1. Bilateral mildly enlarged kidneys with multiple cysts of varying densities, within the limitations of plain study, Adult polycystic kidney disease needs to be considered 2. A 6.5 mm calculus in inferior calyx of left kidney with a tiny 1.5 mm calculus in the inferior calyx of right kidney. No hydronephrosis. 3. Tiny 3-4mm hypodense lesions noted in liver, possibly representing benign hepatic cysts. 4. Mild dextroscoliosis of thoracolumbar spine, could be congenital Electronically Signed by: Rehan Christianson MD. (07/06/2023 20:11:56 EST)
[2023-07-06 20:27] VITALS: O2SAT 99
[2023-07-06 20:36] LABS: Appearance Cloudy (Clear); Bacteria Few /HPF (None Seen); Bilirubin Small (Negative); Blood Moderate (Negative); Epithelial Cells Few /HPF (None Seen); Glucose, Urine Negative (Negative); Ketones 80 (Negative); Leukocyte Esterase Small (Negative); Nitrite Negative (Negative); Ph 7.5 (4.6-8.0); Protein,Urine Dip 100 (Negative); RBC >100 /HPF (0-5); WBC 21-50 /HPF (0-5)
[2023-07-06 20:45] LABS: ADD URINE CULTURE? YES (NO)
[2023-07-06 21:42] VITALS: BP 99/66; PULSE 90
== END 2023-07-06 21:45 | disposition home or self-care (01) ==
LOC: ED 17:50
DX: B27.90 Infectious mononucleosis, unspecified without complication (principal); N39.0 Urinary tract infection, site not specified; R11.2 Nausea with vomiting, unspecified; R19.7 Diarrhea, unspecified; R94.5 Abnormal results of liver function studies; E86.0 Dehydration; R10.9 Unspecified abdominal pain; M79.10 Myalgia, unspecified site; R51.9 Headache, unspecified; Z28.310 Unvaccinated for COVID-19
CPT/HCPCS: 0241U; 36000; 36415; 74176; 80053; 81001; 82150; 83605; 83690; 85025; 86308; 87040; 87086; 96360; 96361; 96374; 96375; 99284; J1170; J2405; A9270-GY